=== PATIENT | male | born 1980 | race Caucasian/White ===

== ENCOUNTER 2018-08-19 16:20 | Emergency (ER) | payer OTHER ==
[2018-08-19 16:31] VITALS: BP 156/121
[2018-08-19] MEDS ORDERED: DIPH/PERTUSS(ACELL)/TETANUS VAC/PF 0.5 ML SYR (>=10YO) IM ONE (17:22)
[2018-08-19] MEDS ORDERED: HYDROCODONE/ACETAMINOPHEN 10-325 MG TABLET PO ONE (17:23)
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
--- NOTE | 2018-08-19 17:59 | RADIOLOGY REPORT (SQ) ---
EXAM DESCRIPTION: TIBIA FIBULA LEFT COMPLETED DATE/TIME: 08/19/2018 5:49 pm REASON FOR STUDY: pain/trauma COMPARISON: None. NUMBER OF VIEWS: Two views. TECHNIQUE: Two radiographic images acquired of the left tibia and fibula to include the knee and ank le in at least one projection. LIMITATIONS: None. FINDINGS: MINERALIZATION: Normal. BONES: No acute fracture or dislocation. No worrisome bone lesions. SOFT TISSUES: Mild soft tissue irregularity are seen anterior to the tibia. No retained radiopaque f oreign body. OTHER: No other significant finding. IMPRESSION: Soft tissue irregularity without retained radiopaque foreign body. No evidence of acute osseous injury. TECHNICAL DOCUMENTATION: JOB ID: [id number] [email or web address]- All Rights Reserved Reading location - IP/workstation name: [email or web address]
--- NOTE | 2018-08-19 18:00 | RADIOLOGY REPORT (SQ) ---
EXAM DESCRIPTION: KNEE LEFT 4 VIEW COMPLETED DATE/TIME: 08/19/2018 5:49 pm REASON FOR STUDY: pain/trauma COMPARISON: None. NUMBER OF VIEWS: Four views. TECHNIQUE: AP, lateral, and both oblique radiographic images acquired of the left knee. LIMITATIONS: None. FINDINGS: MINERALIZATION: Normal. BONES: No acute fracture or dislocation. No worrisome bone lesions. JOINT: No effusion. SOFT TISSUES: No soft tissue swelling. No radio-opaque foreign body. OTHER: No other significant finding. IMPRESSION: Normal left knee. TECHNICAL DOCUMENTATION: JOB ID: [id number] [email or web address]- All Rights Reserved Reading location - IP/workstation name: [email or web address]
== END 2018-08-19 19:42 | disposition left against medical advice (07) ==
LOC: ER 16:20
DX: S81.812A Laceration without foreign body, left lower leg, initial encounter (principal); W01.0XXA Fall on same level from slipping, tripping and stumbling without subsequent striking against object, initial encounter; Z53.20 Procedure and treatment not carried out because of patient's decision for unspecified reasons
CPT/HCPCS: 90471; 90715; 99281

== ENCOUNTER 2019-05-06 17:52 | Emergency (ER) | payer BC, OTHER ==
[2019-05-06 18:14] VITALS: BP 144/110
--- NOTE | 2019-05-06 18:31 | ER Document Report ---
ED Medical Screen (RME) - General Chief Complaint: Eye Pain Stated Complaint: EYE IRRITATION/REDNESS, PAIN Time Seen by Provider: 05/06/19 18:26 Mode of Arrival: Ambulatory Information source: Patient Notes: 39-year-old male presented to ED for complaint of eye pain and drainage to both since yesterday. H he does wear contact lenses but is not wearing them now he does have glasses on. He states the pain started about 330 yesterday. 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 I have greeted and performed a rapid initial assessment of this patient. A comprehensive ED assessment and evaluation of the patient, analysis of test results and completion of medical decision making process will be conducted by an additional ED providers. TRAVEL OUTSIDE OF THE [place] IN LAST 30 DAYS: No - Related Data Allergies/Adverse Reactions: No Known Allergies Allergy (Verified 08/19/18 16:27) Past Medical History - General Information source: Patient - Social History Cigarette use (# per day): Yes - Half pack a day Frequency of alcohol use: Heavy Drug Abuse: None Occupation: [employer] Lives with: Alone Family history: Reviewed & Not Pertinent - Past Medical History Cardiac Medical History: Reports: Hx Hypertension Pulmonary Medical History: Reports: None EENT Medical History: Reports: None Neurological Medical History: Reports: None Endocrine Medical History: Reports: None Renal/ Medical History: Reports: None Malignancy Medical History: Reports None GI Medical History: Reports: None Musculoskeltal Medical History: Reports None Skin Medical History: Reports None Psychiatric Medical History: Reports: None Traumatic Medical History: Reports: None Infectious Medical History: Reports: Hx Hepatitis - Hep C Past Surgical History: Reports: Hx Umbilical Hernia Physical Exam - Vital signs Vitals: Temp Pulse Resp BP Pulse Ox 98.1 F 101 H 18 144/110 H 100 05/06/19 18:04 05/06/19 18:04 05/06/19 18:04 05/06/19 18:04 05/06/19 18:04 Course - Vital Signs Vital signs: Temp Pulse Resp BP Pulse Ox 98.1 F 101 H 18 144/110 H 100 05/06/19 18:04 05/06/19 18:04 05/06/19 18:04 05/06/19 18:04 05/06/19 18:04
== END 2019-05-06 19:35 | disposition left against medical advice (07) ==
LOC: ER 17:52
DX: H57.13 Ocular pain, bilateral (principal); H57.89 Other specified disorders of eye and adnexa; I10 Essential (primary) hypertension; Z72.0 Tobacco use; Z53.20 Procedure and treatment not carried out because of patient's decision for unspecified reasons
CPT/HCPCS: 99281

== ENCOUNTER 2019-09-14 23:04 | Emergency (ER) | payer OTHER, BC ==
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
[2019-09-15 01:29] LABS: ABSOLUTE LYMPHOCYTES (AUTO) 1.7 10^3/uL (0.5-4.7); ABSOLUTE MONOCYTES (AUTO) 0.4 10^3/uL (0.1-1.4); ABSOLUTE NEUT (AUTO) 2.6 10^3/uL (1.7-8.2); BASOPHILS % (AUTO) 0.7 % (0-2); EOSINOPHILS % (AUTO) 0.8 % (0-6); HEMATOCRIT 39.7 % (37.9-51.0); HEMOGLOBIN 13.9 g/dL (13.5-17.0); LYMPHOCYTES % (AUTO) 35.1 % (13-45); MEAN CORPUSCULAR HEMOGLOBIN 37.1 pg (27.0-33.4); MEAN CORPUSCULAR HGB CONC 35.1 g/dL (32.0-36.0); MEAN CORPUSCULAR VOLUME 106 fl (80-97); RED BLOOD COUNT 3.75 10^6/uL (4.35-5.55); RED CELL DISTRIBUTION WIDTH 14.4 % (11.5-14.0); SEGMENTED NEUTROPHILS % (AUTO) 54.4 % (42-78); TOTAL CELLS COUNTED % (AUTO) 100 %; WHITE BLOOD COUNT 4.8 10^3/uL (4.0-10.5)
[2019-09-15 01:49] LABS: ALKALINE PHOSPHATASE 211 U/L (38-126); ANION GAP 11 (5-19); ASPARTATE AMINO TRANSFERASE 553 U/L (17-59); BILIRUBIN,DIRECT 2.9 mg/dL (0.0-0.4); BILIRUBIN,TOTAL 5.2 mg/dL (0.2-1.3); BLOOD UREA NITROGEN 4 mg/dL (7-20); CARBON DIOXIDE 29 mmol/L (22-30); CHLORIDE 102 mmol/L (98-107); GLUCOSE 135 mg/dL (75-110); POTASSIUM 3.9 mmol/L (3.6-5.0); TOTAL PROTEIN 8.2 g/dL (6.3-8.2)
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
[2019-09-15] MEDS ORDERED: NICOTINE 14 MG/24 HR PATCH.TD24 TD ONE (02:52)
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
[2019-09-15 04:56] VITALS: BP 112/80
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
[2019-09-17 07:13] LABS: PLATELET COUNT 21 10^3/uL (150-450)
[2019-09-17 12:28] LABS: PATH REVIEW PATHOLOGIST REVIEWED
== END 2019-09-15 05:47 | disposition home or self-care (01) ==
LOC: ER 23:04
DX: S40.021A Contusion of right upper arm, initial encounter (principal); S80.12XA Contusion of left lower leg, initial encounter; S80.01XA Contusion of right knee, initial encounter; M79.601 Pain in right arm; M79.604 Pain in right leg; M25.561 Pain in right knee; M79.605 Pain in left leg; V89.2XXA Person injured in unspecified motor-vehicle accident, traffic, initial encounter; F17.210 Nicotine dependence, cigarettes, uncomplicated
CPT/HCPCS: 36415; 70450; 71046; 74150; 80053; 85025; 99284